=== PATIENT | male | born 2005 | race Caucasian/White ===

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

== ENCOUNTER 2024-07-21 21:42 | Emergency (ER) | payer BC ==
--- OUTSIDE RECORDS SUMMARY | 2024-07-21 21:46 | XMS REPORT | Continuity of Care Document ---
Author Name Unknown Address [address] [facility] [address] [place] [address] [facility] Address [address] [facility] [address] [place] [address] Care Team Providers Care Treater Helper Name Role Phone Pcp, Patient Does Not Have A Primary Care Physic morgan ELTON CASTELAN Attending Clinician Unavailable ERIC BURRIS Attending Clinician Unavailable Eric Munoz Attending Clinician [phone] Jose Fortune MD Attending Clinician [phone] ELTON CASTELAN M.D. Attending Clinician BRIANA Carreon M.D. Attending Clinician UnavailSundar Barragan I Attending Clinician Clementina Woodson Attending Clinician [phone] Doctor Unassigned, [place] Attending Clinician U william Cash RN, Juju Rodgers Attending Clinician CLEMENTINA Villela Attending Clinician Unavailable Jerson Andrade Attending Clinician [phone] JERSON THORNTON Attending Clinician Unavailable Payers Payer Name Policy Type Policy Number Effective Date Expirati on Date Source [employer] [place] [id number] 2017 00:00:00 [employer] [place] [id number] 2017 00:00:00 Problems Condition Name Condition Details Condition Category Status Onset Date Resolution Date Last Treatment Date Treating Clinician Comments Source Elevated blood pressure reading Elevated blood pressure reading Disease Active 09-13 00:00: 00 [facility] Elevated blood pressure reading Elevated blood pressure reading Problem Active [facility] Hypertensi on in child Hypertensi on in child Problem Active [facility] No known active problems No known active problems Disease [facility] Allergies, Adverse Reactions, Alerts Allergy Name Allergy Type Status Severity Reaction(s) Onset Date Inactive Date Treating Clinician Comments Source NO KNOWN ALLERGIE S Drug Class Active [facility] Social History Social Habit Start Date Stop Date Quantity Comments Source Exposure to SARS-CoV-2 (event) Not sure [facility] function 2021-04-07 00:00:00 2021-04-07 00:00:00 [facility] Alcohol intake 2021-04-07 00:00:00 2021-04-07 00:00:00 Lifetime non-drinker (finding) [facility] Tobacco use and exposure 2021-03-15 00:00:00 2021-03-15 00:00:00 Never used [facility] Sex Assigned At 2005 00:00:00 2005 00:00:00 [facility] Smoking Status Start Date Stop Date Source Tobacco smoking consumption unknown [facility] Never smoker [facility] Medications Ordered Medication Name Filled Medication Name Start Date Stop Date Current Medication? Ordering Clinician Indication Dosage Frequency Signature (SIG) Comments Components Source lisinopril 20 MG tablet 2020-07 00:00: 00 Yes [id number] 20mg QD Take 1 tablet (20 mg total) by mouth 1 (one) time each day. [facility] doxycycline hyclate 100 mg tablet 03-12 00:00: 00 Yes 100mg Take 100 mg by mouth every 12 (twelve) hours. [facility] ibuprofen 800 mg tablet 03-12 00:00: 00 Yes TAKE 1 TABLET BY MOUTH EVERY 8 HOURS NEEDED FOR PAIN TAKE WITH FOOD [facility] sulfamethox azole-trime thoprim 800-160 mg per tablet 03-12 00:00: 00 Yes TAKE 1 TABLET BY MOUTH EVERY 12 HOURS FOR 10 DAYS [facility] metoprolol succinate XL (Toprol-XL) 100 MG 24 hr tablet 03-01 00:00: 00 03-02 04:59 :00 No [id number] 100mg QD TAKE 1 TABLET (100 MG TOTAL) BY MOUTH 1 (ONE) TIME EACH DAY. DO NOT CRUSH OR CHEW. [facility] lisinopril 20 MG tablet 03-01 00:00: 00 05-16 00:00 :00 No [id number] TAKE 1 TABLET BY MOUTH EVERY DAY [facility] lisinopril 20 MG tablet 02-15 00:00: 00 03-01 00:00 :00 No [id number] TAKE 1 TABLET BY MOUTH EVERY DAY [facility] metoprolol succinate XL (Toprol XL) 100 MG 24 hr tablet 02-07 00:00: 00 03-01 00:00 :00 No [id number] 100mg QD Take 1 tablet (100 mg total) by mouth 1 (one) time each day. Do not crush or chew. [facility] albuterol 108 (90 Base) MCG/ACT inhaler 01-24 00:00: 00 Yes INHALE 2 4 PUFFS BY MOUTH BEFORE EXERCISE AND EVERY 4 HOURS NEEDED FOR COUGH/SOB/ WHEEZE [facility] lisinopril 20 MG tablet 01-13 00:00: 00 No [id number] TAKE 1 TABLET BY MOUTH EVERY DAY [facility] lisinopril 20 MG tablet 10-11 00:00: 00 01-13 00:00 :00 No TAKE 1 TABLET DAILY. [facility] Vital Signs Vital Name Observation Time Observation Value Comments S ource Systolic blood pressure 2021-10-10 19:22:00 154 mm[Hg] 152/84, 157/83, 151/80 [facility] Diastolic blood pressure 2021-10-10 19:22:00 82 mm[Hg] 152/84, 157/83, 151/80 [facility] Heart rate 2021-10-10 19:22:00 54 /min [facility] Body height 2021-10-10 19:22:00 187.2 cm [facility] Body weight 2021-10-10 19:22:00 82.6 kg [facility] BMI 2021-10-10 19:22:00 23.57 kg/m2 [facility] Body mass index (BMI) [Percentile] Per age and sex 2021-10-10 19:22:00 70.33 % [facility] Systolic blood pressure 2021-05-16 20:09:00 153 mm[Hg] 158/78, 153/79, 153/74 [facility] Diastolic blood pressure 2021-05-16 20:09:00 77 mm[Hg] 158/78, 153/79, 153/74 [facility] Heart rate 2021-05-16 20:09:00 64 /min [facility] Body height 2021-05-16 20:09:00 187.1 cm [facility] Body weight 2021-05-16 20:09:00 81.3 kg [facility] BMI 2021-05-16 20:09:00 23.22 kg/m2 [facility] Body mass index (BMI) [Percentile] Per age and sex 2021-05-16 20:09:00 69.59 % [facility] Body height 2021-04-07 19:11:00 188 cm [facility] Body weight 2021-04-07 19:11:00 79.379 kg [facility] BMI 2021-04-07 19:11:00 22.47 kg/m2 [facility] Body mass index (BMI) [Percentile] Per age and sex 2021-04-07 19:11:00 62.27 % [facility] Systolic blood pressure 2021-02-07 20:15:00 133 mm[Hg] 136/79 [facility] Diastolic blood pressure 2021-02-07 20:15:00 72 mm[Hg] 136/79 [facility] Heart rate 2021-02-07 20:15:00 60 /min [facility] Body height 2021-02-07 20:15:00 186.6 cm [facility] Body weight 2021-02-07 20:15:00 79.107 kg [facility] BMI 2021-02-07 20:15:00 22.72 kg/m2 [facility] Body mass index (BMI) [Ratio] 2020-09-13 13:53:00 22.77 kg/m2 [facility] Heart Rate 2020-09-13 13:53:00 77 /min [facility] Systolic blood pressure 2020-09-13 13:53:00 153 mm[Hg] Location: LUE; Position: Sitting [facility] Diastolic blood pressure 2020-09-13 13:53:00 83 mm[Hg] Location: LUE; Position: Sitting [facility] Body height 2020-09-13 13:53:00 184.5 cm [facility] Weight 2020-09-13 13:53:00 77.5 kg [facility] Procedures Procedure Date / Time Performed Performing Clinicia n Source POCT URINALYSIS DIPSTICK 2021-10-10 19:36:00 Elton Castelan [facility] [QL] CMP W/EGFR 2020-10-11 00:00:00 [facility] Echo (In Office) 2020-09-15 00:00:00 [facility] [L] Metanephrines Urine, Total - Esoterix 2020-09-13 00:00:00 [facility] [L] Metanephrines, Fract. Urine 2020-09-13 00:00:00 [facility] Plan of Care Planned Activity Planned Date Details Comments Source Future Scheduled Test 2020-11-15 00:00:00 [QL] CMP W/EGFR [code = [QL] CMP W/EGFR] [facility] Future Scheduled Test 2020-11-15 00:00:00 [QL] CMP W/EGFR [code = [QL] CMP W/EGFR] [facility] Future Scheduled Test 2020-11-15 00:00:00 [QL] CMP W/EGFR [code = [QL] CMP W/EGFR] [facility] Future Scheduled Test 2020-09-20 00:00:00 Echo (In Office) [code = 31110] [facility] Diagnostic Test Pending 2020-09-20 00:00:00 Echo (In Office) [code = 28409] [facility] Future Scheduled Test [L] Metanephrines Urine, Total - Esoterix [code = [L] Metanephrines Urine, Total - Esoterix] Approx 13Sep2020 [facility] Future Scheduled Test [L] Metanephrines, Fract. Urine [code = [L] Metanephrines, Fract. Urine] Approx 13Sep2020 [facility] Future Scheduled Test [L] Metanephrines Urine, Total - Esoterix [code = [L] Metanephrines Urine, Total - Esoterix] Approx 13Sep2020 [facility] Future Scheduled Test [L] Metanephrines, Fract. Urine [code = [L] Metanephrines, Fract. Urine] Approx 13Sep2020 [facility] Encounters Start Date/Time End Date/Time Encounter Type Admission Type Attending Clinicians Care Facility Care Department Encounter ID Source 2022-05-09 15:25:08 Outpatient [facility] [id number] [facility] 2021-05-19 10:15:37 Outpatient ELTON CASTELAN [facility] [id number] [facility] 2020-11-13 03:41:44 Outpatient ELTON CASTELAN [facility] [id number] [facility] 2022-11-20 13:40:00 2022-11-20 13:40:00 Outpatient ELTON CASTELAN [facility] [id number] [facility] 2022-05-22 13:40:00 2022-05-22 15:00:55 Outpatient ELTON CASTELAN [facility] [id number] [facility] 2021-10-10 14:20:00 2021-10-10 14:40:00 Office Visit Elton Castelan [facility] [address] [id number] 350.1.13.58 9.2.7.2.686 [id number] [facility] 2021-05-16 13:57:52 2021-05-16 14:17:52 Office Visit ELTON CASTELAN [facility] [address] [id number] 350.1.13.58 9.2.7.2.686 [id number] [facility] 2021-04-07 15:30:00 2021-04-07 15:30:00 Outpatient ERIC CORTES [facility] [id number] [facility] 2021-04-07 14:09:25 2021-04-07 14:24:25 [facility] [id number] 350.1.13.10 4.2.7.2.686 [id number] [facility] 2021-04-07 00:00:00 2021-04-07 00:00:00 Letter (Out) Fortune, Jose [facility] [id number] 350.1.13.10 4.2.7.2.686 [id number] [facility] 2021-03-22 14:15:00 2021-03-22 14:15:00 Outpatient [facility] [id number] [facility] 2021-03-15 14:45:00 2021-03-15 14:45:00 Outpatient [facility] [id number] [facility] 2021-03-15 13:09:00 2021-03-15 13:24:00 Office Visit Eric Burris [facility] 1.84.114 350.1.13.10 4.2.7.2.686 [id number] [facility] 2021-03-15 13:15:00 2021-03-15 13:15:00 Outpatient R [facility] [id number] [facility] 2021-03-15 00:00:00 2021-03-15 00:00:00 Letter (Out) Jose Fortune [facility] 1.84.114 350.1.13.10 4.2.7.2.686 [id number] [facility] 2021-03-01 00:00:00 2021-03-01 00:00:00 Refill Elton Castelan [facility] 1..114 350.1.13.58 9.2.7.2.686 [id number] [facility] 2021-03-01 00:00:00 2021-03-01 00:00:00 Refill Elton Castelan [facility] [address] [facility] 1.0.114 350.1.13.58 9.2.7.2.686 [id number] [facility] 2021-03-01 00:00:00 2021-03-01 00:00:00 Refill Elton Castelan [facility] [address] 1.2.840.114 350.1.13.58 9.2.7.2.686 [id number] 2021-03-01 00:00:00 2021-03-01 00:00:00 Refill Elton Castelan [facility] 1.2.840.114 350.1.13.58 9.2.7.2.686 [id number] 2021-02-13 00:00:00 2021-02-13 00:00:00 Refill Elton Castelan [facility] 1.2.840.114 350.1.13.58 9.2.7.2.686 [id number] [facility] 2021-02-13 00:00:00 2021-02-13 00:00:00 Refill Elton Castelan [facility] 1.2.840.114 350.1.13.58 9.2.7.2.686 [id number] 2021-02-07 15:07:59 2021-02-07 15:22:59 Office Visit Elton Castelan [facility] [address] 1.2.840.114 350.1.13.58 9.2.7.2.686 [id number] [facility] 2021-01-05 00:00:00 2021-01-05 00:00:00 Refill [facility] Cast[facility]an [facility] 1.2.840.114 350.1.13.58 9.2.7.2.686 [id number] [facility] 2020-10-11 14:00:00 2020-10-11 14:00:00 Rita tELTON ROMERO M.D. SAMUELS, JOSHUA, M.D. [facility] [id number] [facility] 2020-09-20 10:20:00 2020-09-20 10:20:00 Appointmen t; BRIANA WELLS M.D. PATEL, MEHUL, M.D. [facility] [id number] [facility] 2020-09-13 14:00:00 2020-09-13 14:00:00 Appointmen t; ELTON CASTELAN M.D. SAMUELS, JOSHUA, M.D. [facility] Ped Nephrology & Hypertensio n [id number] [facility] 2020-09-07 13:08:00 2020-09-07 13:28:00 Laboratory Only Lab, [facility] Clementina Suggs [facility] Office Building One 1.0.114 350.1.13.10 4.2.7.2.686 [id number] [facility] 2020-09-07 13:08:00 2020-09-07 13:28:00 Laboratory Only Lab, [facility] Office [facility] One .0.114 350.1.13.10 4.2.7.2.686 [id number] 2020-09-07 13:00:00 2020-09-07 13:00:00 Outpatient R [facility] [id number] [facility] 2020-09-06 00:00:00 2020-09-06 00:00:00 Patient Secure Msg Doctor Unassigned, [place] [facility] 1.0.114 350.1.13.10 4.2.7.2.686 [id number] [facility] 2020-09-06 00:00:00 2020-09-06 00:00:00 Patient Secure Msg Doctor Unassigned, [place] [facility] 1.840.114 350.1.13.10 4.2.7.2.686 [id number] [facility] 2020-09-06 00:00:00 2020-09-06 00:00:00 Letter (Out) [facility] 1.2.840.114 350.1.13.10 4.2.7.2.686 [id number] [facility] 2020-09-06 00:00:00 2020-09-06 00:00:00 Letter (Out) [facility] 1.2.840.114 350.1.13.10 4.2.7.2.686 [id number] 2020-09-03 11:31:48 2020-09-03 11:51:48 Laboratory Only Lab, [facility] Jm Suggs [facility] Office Building One 1.840.114 350.1.13.10 4.2.7.2.686 [id number] [facility] 2020-09-03 11:31:48 2020-09-03 11:51:48 Laboratory Only Lab, [facility] Office [facility] One 1.2840.114 350.1.13.10 4.2.7.2.686 [id number] 2020-09-03 11:20:00 2020-09-03 11:20:00 Outpatient CLEMENTINA SCHAEFFER [facility] [id number] [facility] 2020-05-22 16:45:51 2020-05-22 17:05:51 Laboratory Only Lab, [facility] Jm Thornton [facility] Office Building One 1.840.114 350.1.13.10 4.2.7.2.686 [id number] [facility] 2020-05-22 16:40:00 2020-05-22 16:40:00 [id number] 2020-05-22 00:00:00 2020-05-22 00:00:00 Letter (Out) Doctor Unassigned, [place] [facility] 1.2.840.114 350.1.13.10 4.2.7.2.686 [id number] 2020-05-22 00:00:00 2020-05-22 00:00:00 Letter (Out) Doctor Unassigned, [place] [facility] 1.2.840.114 350.1.13.10 4.2.7.2.686 [id number] [facility] Results Test Description Test Time Test Comments Results Result Co mments Source [facility][Q] METANEPHRINES, FRACT. LC/MS/MS, RANDOM [id number] 18:00:00* Test Item Value Reference Range Interpretation Comments METANEPHRINE (test code = METANEPHRINE) 77 {MCG/G CREA} 24-302 This test was develo ped and its analytical performancecharacteristics have been determined by [facility]. It has not beencleared or approved by FDA. This assay has been validatedpursuant to the CLIA regulations and is used for clinicalpurposes. NORMETANEPHRINE (test code = NORMETANEPHRINE) 166 {MCG/G CREA} 14-302 This test was develo ped and its analytical performancecharacteristics have been determined by [facility]. It has not beencleared or approved by FDA. This assay has been validatedpursuant to the CLIA regulations and is used for clinicalpurposes. METANEPHRINES, TOTAL (test code = METANEPHRINES, TOTAL) 243 {MCG/G CREA} 39-578 A four-fold elevatio n of urinary normetanephrines isextremely likely due to a tumor, while a four-fold elevationof urinary metanephrines is highly suggestive, but notdiagnostic of the tumor. Measurement of plasma Metanephrinesand Chromogranin A is recommended for confirmation. This test was developed and its analytical performancecharacteristics have been determined by [facility]. It has not beencleared or approved by FDA. This assay has been validatedpursuant to the CLIA regulations and is used for clinicalpurposes. CREATININE, RANDOM URINE (test code = CREATININE, RANDOM URINE) 68 mg/dl 20-320 NO COLLECTION DA TE RECEIVED. WE HAVE USEDTHE DATE THE SPECIMEN WAS RECEIVED BY [facility] THE COLLECTION DATE. IF THISIS INCORRECT, PLEASE CONTACT CLIENT SERVICES.PHONE NUMBER: [phone] A four-fold elevation of urinary normetanephrines isextremely likely due to a tumor, while a four-fold elevationof urinary metanephrines is highly suggestive, but notdiagnostic of the tumor. Measurement of plasma Metanephrinesand Chromogranin A is recommended for confirmation. This test was developed and its analytical performancecharacteristics have been determined by [facility]. It has not beencleared or approved by FDA. This assay has been validatedpursuant to the CLIA regulations and is used for clinicalpurposes.[facility][O] Urine Dipstick (In Office) 2020-09-13 15:25:00* Test Item Value Reference Range Interpretation Comme nts Glucose (test code = Glucose) neg N LEUKOCYTES (test code = LEUKOCYTES) neg N NITRITE; Normal (test code = 93408-0) neg N UROBILINOGEN; Normal (test c ode = 11921-3) 0.2 N PROTEIN; Normal (test code = 72190-2) neg N pH (test code = pH) 7.0 N URINE BLOOD; Normal (test co de = 85209-5) neg N SPECIFIC GRAVITY; Normal (te st code = 2965-2) 1.025 N KETONES; Normal (test code = 52464-5) neg N BILIRUBIN; Normal (test code = 19068-8) neg N [facility]
--- NOTE | 2024-07-21 22:16 | ER ---
Nurse's Notes [facility] Name: Christopher Ma Age: 18 yrs Sex: Male : 2005 Arrival Date: 07/21/2024 Time: 21:42 Bed 11 Private MD: Diagnosis: Cellulitis of left lower limb Presentation: 07/21 22:00 Chief complaint: Patient states: left thigh abscess , already taking prescribed ha1 antibiotic. 22:00 Coronavirus screen: Client denies travel out of the [place] in the last 14 days. Ebola ha1 Screen: No symptoms or risks identified at this time. Initial Sepsis Screen: Does the patient meet any 2 criteria? No. Patient's initial sepsis screen is negative. Does the patient have a suspected source of infection? No. Patient's initial sepsis screen is negative. Risk Assessment: Do you want to hurt yourself or someone else? Patient reports no desire to harm self or others. Onset of symptoms was July 21, 2024. 22:00 Method Of Arrival: Ambulatory ha1 22:00 Acuity: FRANKLIN 3 ha1 Historical: - Allergies: 22:09 No Known Allergies; ha1 - Home Meds: 22:09 lisinopril 20 mg Oral tab 1 tab once daily [Active]; ha1 - PMHx: 22:09 Hypertensive disorder; ha1 - PSHx: 22:09 hernia repair; ha1 - Immunization history:: Adult Immunizations up to date. - Infectious Disease History:: Denies. - Social history:: Smoking status: Patient reports the use of cigarette tobacco products, denies chronic smoking, but will smoke occasionally. Screenin:34 [facility] ED Fall Risk Assessment (Adult) History of falling in the last 3 months, jb4 including since admission No falls in past 3 months (0 pts) Confusion or Disorientation No (0 pts) Intoxicated or Sedated No (0 pts) Impaired Gait No (0 pts) Mobility Assist Device Used No (0 pt) Altered Elimination No (0 pt) Score/Fall Risk Level 0 - 2 = Low Risk Oriented to surroundings, Maintained a safe environment. Abuse screen: Denies threats or abuse. Nutritional screening: No deficits noted. Tuberculosis screening: No symptoms or risk factors identified. Assessment: 22:34 General: Appears in no apparent distress. comfortable, Behavior is calm, cooperative, jb4 appropriate for age. Pain: Complains of pain in left quadriceps Pain does not radiate. Pain currently is 4 out of 10 on a pain scale. Neuro: Level of Consciousness is awake, alert, obeys commands, Oriented to person, place, time, situation. Cardiovascular: Patient's skin is warm and dry. Respiratory: Airway is patent Respiratory effort is even, unlabored, Respiratory pattern is regular, symmetrical. Derm: Skin is pink, warm \T\ dry. Abscess located on left quadriceps is nickel sized. Musculoskeletal: Circulation, motion, and sensation intact. Range of motion: intact in all extremities. Vital Signs: 22:00 BP 102 / 74; Pulse 93; Resp 18 S; Temp 98.6(O); Pulse Ox 99% on R/A; Weight 86.18 kg; ha1 Height 6 ft. 1 in. ; 22:00 Body Mass Index 25.07 (86.18 kg, 185.42 cm) ha1 ED Course: 21:46 Patient arrived in ED. ra3 21:46 Lionel Baez MD is Attending Physician. ec2 22:09 Triage completed. ha1 22:34 Patient has correct armband on for positive identification. Bed in low position. Call jb4 light in reach. Side rails up X 1. Provided Education on: discharge instructions.. 22:34 No provider procedures requiring assistance completed. Patient did not have IV access jb4 during this emergency room visit. Administered Medications: 22:29 Drug: Ketorolac IM 15 mg IM once Route: IM; Site: right vastus lateralis; jb4 22:31 Follow up: Response: Medication administered at discharge. jb4 22:30 Drug: Trimethoprim-Sulfamethoxazole PO (160 mg-800 mg (DS) 1 tablet PO once Route: PO; jb4 22:30 Follow up: Response: Medication administered at discharge. jb4 Medication: 22:34 VIS not applicable for this client. jb4 Outcome: 22:15 Discharge ordered by . ec2 22:34 Discharged to home ambulatory, with family, jb4 22:34 Condition: stable 22:34 Discharge instructions given to patient, Instructed on discharge instructions, follow up and referral plans. medication usage, Demonstrated understanding of instructions, follow-up care, medications, Prescriptions given X 1, 22:38 Patient left the ED. jb4 Signatures: Eduar Gonzalez RN RN jb4 Shannan Avila, RK RN ha1 Lionel Baez MD MD ec2 Bernie Burns ra3
--- NOTE | 2024-07-21 22:16 | EDPHYS ---
Physician Documentation [facility] Name: Christopher Ma Age: 18 yrs Sex: Male : 2005 Arrival Date: 07/21/2024 Time: 21:42 Bed 11 Private MD: ED Physician Lionel Baez HPI: 07/21 22:15 This 18 yrs old Male presents to ER via Ambulatory with complaints of Abscess ec2 - inner left thigh. 22:15 Patient arrives today for evaluation of redness and induration to the left inner thigh. ec2 States has been ongoing for several days, was recently seen at urgent care and prescribed doxycycline. Patient reports has been on antibiotics for 1 day. No fevers or chills, no nausea or vomiting. No significant medical problems. . Historical: - Allergies: 22:09 No Known Allergies; ha1 - Home Meds: 22:09 lisinopril 20 mg Oral tab 1 tab once daily [Active]; ha1 - PMHx: 22:09 Hypertensive disorder; ha1 - PSHx: 22:09 hernia repair; ha1 - Immunization history:: Adult Immunizations up to date. - Infectious Disease History:: Denies. - Social history:: Smoking status: Patient reports the use of cigarette tobacco products, denies chronic smoking, but will smoke occasionally. ROS: 22:15 Constitutional: as per hpi ec2 Exam: 22:15 Constitutional: GEN: NAD Head: atraumatic Eyes: EOMI Ears: External ears are ec2 normal. CV: regular rate LUNGS: no respiratory distress ABD: non-distended SKIN: Induration and erythema noted to the left mid thigh, no crepitus, no fluctuance appreciated. MSK: no evidence of trauma Vital Signs: 22:00 BP 102 / 74; Pulse 93; Resp 18 S; Temp 98.6(O); Pulse Ox 99% on R/A; Weight 86.18 kg; ha1 Height 6 ft. 1 in. ; 22:00 Body Mass Index 25.07 (86.18 kg, 185.42 cm) ha1 Procedures: 22:17 Ultrasound: Type: skin/soft tissue, performed by the emergency department physician. ec2 MDM: 21:46 Medical Screening Exam initiated ec2 22:17 Data reviewed: vital signs, nurses notes. ED course: Patient arrives today for ec2 evaluation of induration and erythema to the left inner thigh. Examination yields skin findings as above. Presentation consistent with cellulitis. I performed ultrasonography which showed cobblestoning, no discrete pocket of fluid collection. Will discharge home on Bactrim. Instructed him on dual antibiotic therapy and will discharge home with return precautions.. Administered Medications: 22:29 Drug: Ketorolac IM 15 mg IM once Route: IM; Site: right vastus lateralis; jb4 22:31 Follow up: Response: Medication administered at discharge. jb4 22:30 Drug: Trimethoprim-Sulfamethoxazole PO (160 mg-800 mg (DS) 1 tablet PO once Route: PO; jb4 22:30 Follow up: Response: Medication administered at discharge. jb4 Disposition Summary: 07/21/24 22:15 Discharge Ordered Notes: Location: Home ec2 Condition: Stable ec2 Diagnosis - Cellulitis of left lower limb ec2 Followup: ec2 - With: Private Physician - When: - Reason: Re-evaluation by your physician Discharge Instructions: - Discharge Summary Sheet ec2 - Cellulitis, Adult ec2 Forms: - Medication Reconciliation Form ec2 - Antibiotic Education ec2 - Prescription Opioid Use ec2 - Patient Portal Instructions ec2 - Leadership Thank You Letter ec2 Prescriptions: - Bactrim DS 800-160 mg Oral Tablet - take 1 tablet ORAL route every 12 hours for 7 days; 14 tablet; Refills: 0, ec2 Product Selection Permitted Signatures: Eduar Gonzalez RN RN jb4 Shannan Avila RN RN ha1 Lionel Baez MD MD ec2
[2024-07-21] MEDS ORDERED: KETOROLAC 30 MG/ML INJ ONE (22:22)
[2024-07-21] MEDS ORDERED: SMZ./TMP. 800/160 MG TABLET ONE (22:22)
[2024-07-22 17:11] VITALS: BP 102/74; TEMP 98.6; O2SAT 99
== END 2024-07-21 22:38 | disposition home or self-care (01) ==
LOC: ER 21:42
DX: L03.116 Cellulitis of left lower limb (principal)
CPT/HCPCS: 96372; 99284